=== PATIENT | male | born 1950 | race Caucasian/White ===

== ENCOUNTER → 2016-11-25 | Outpatient (CLI) | payer OTHER ==
[~2016-11-25] MED LIST: FINA5TAB PO; FLM4 PO; GLC500 PO; HYDC25 PO; LISI10TA PO; ROSU40TA PO; TADA10TA PO; ULT50X PO
--- NOTE | 2016-11-25 09:27 | DIAGNOSTIC IMAGING REPORT ---
KUB CLINICAL HISTORY: 66 years-old Male presenting with N39.0 Urinary tract [id number]. TECHNIQUE: Single supine view of the abdomen was obtained. COMPARISON: 04/08/2015. FINDINGS: Interval removal of the right ureteral stent. Previous seen noted small left renal calculus is obscured due to bowel gas and stool. Allowing for this limitation, no renal or ureteral calculi evident. Moderate stool burden in the rectum. No gross pneumoperitoneum. Osseous structures normal. Lung bases clear. IMPRESSION: 1. Interval removal of the right ureteral stent. Nonvisualization of renal or ureteral calculi allowing for bowel gas and stool. Electronically signed by: Scotty Page M.D. 11/25/2016 9:26 AM Dictated Date/Time: 11/25/2016 9:24 AM
== END | disposition home or self-care (01) ==
LOC: C.RAD 08:41
PROVIDERS: ATTEND Nurse Practitioner Adult Health
DX: N39.0 Urinary tract infection, site not specified (principal); N20.0 Calculus of kidney

== ENCOUNTER → 2017-06-07 | Outpatient (CLI) | payer OTHER ==
--- NOTE | 2017-06-08 06:25 | SPLIT NIGHT TECHNICIAN REPORT ---
[facility] Split Night Polysomnogram - Animal Care Provider Report Study date: 06/07/2017 Referring Physician: Dr. Tiesha Price M.D. Name: SYED BARKER Animal Care Provider: JULIAN Nicole. Date of : 1950 Height: 67 years, Height 6' 0" Sex: Male Weight: 193 lbs Age: 67 BMI: Medications: 26.17 METFORMIN 1000 MG, ROSAVASTATIN 40 MG, HYDROCHLOROTHIAZIDE 25 MG, LISINOPRIL 10 MG, FINASTERIDE 5 MG, IRON 65 MG, MULTI VIT Patient History 67 yr-old male here for a baseline/modified split study (CPAP to be introduced if AHI exceeds 5). He has had previous sleep testing was diagnosed with JORJE but could not tolerate CPAP. He is back to assess his JORJE. His [place] scale is 15. The test was started on room air. ETCO2 testing is included in this study. Room 1 Parameters Monitored NPSG: E1-M2, E2-M1, Fp1-M2, Fp2-M1, F3-M2, F4-M2, F4-M1, C3-M2, C4-M2, C4-M1, O1-M2, O2-M2, O2-M1, T3-M2, T4-M1, P3-M2, P4-M1, CHIN1, CHIN2, HR, EKG, Legs, PFLOW, SNOR, FLOW, CFLOW, Tidal Volume, THOR, ABDO, SpO2, PLTH, CPRESS, ETCO2 Wave, ETCO2, pH SLEEP SUMMARY DATA DIAGNOSTIC TREATMENT Lights Out: 10:34:06 PM 1:36:36 AM Lights On: 1:16:36 AM 5:22:36 AM Total Recording Time (TRT): 162.5 min. 226.0 min. Total Sleep Time (TST): 127.5 min. 149.0 min. NREM Time: 117.0 min. 108.5 min. REM Time: 10.5 min. 40.5 min. Sleep Period Time (SPT): 156.5 min. 196.5 min. Sleep Efficiency (SE): 78 % 66 % Sleep Latency: 6.0 min. 19.5 min. Arousal Index: 17.4 18.9 PAP Treatment Levels: 4, 5, 6 * Optimal Pressure(s) SLEEP STAGING DATA DIAGNOSTIC TREATMENT Duration (min) TST % Duration (min) TST % Stage Wake: 35.0 min. -- 77.0 min. -- WASO: 29.0 min. -- 47.5 min. -- NREM: 117.0 min. 92 % 108.5 min. 73 % Stage N1: 20.0 min. 16 % 14.0 min. 9 % Stage N2: 97.0 min. 76 % 89.0 min. 60 % Stage N3: 0.0 min. 0 % 5.5 min. 4 % REM: 10.5 min. 8 % 40.5 min. 27 % POSITIONAL DATA Event Count Index Event Count Index Supine: 36 50 6 23.4 Supine NREM: 34 51.2 6 23.4 Supine REM: 2 24 N/A N/A Non-Supine: 10 7.0 6 2.7 Non-Supine NREM: 10 7.7 4 2.6 Non-Supine REM: 0 0.0 2 3.0 AROUSAL SUMMARY DATA: Event Count Index Event Count Index Apnea Arousals: 10 7.1 6 3.6 Hypopnea Arousals: 4 1.9 1 0.4 Snore Arousals: 7 3.3 7 2.8 PLM Arousals: 10 4.7 14 5.6 Non-Specific Arousals: 2 0.9 11 4.4 Total Arousals: 37 17.4 47 18.9 MYOCLONUS (PLM) Event Count Index Event Count Index PLM: 66 31.1 67 27.0 PLM AROUSAL: 10 4.7 14 5.6 PLM W/O AROUSAL 66 31.1 53 21.3 PLM W/RESP EVENT 3 0.0 9 0.0 MYOCLONUS (PLM) Event Count Index Event Count Index LM: 2 29.6 45 18.1 LM AROUSAL: 2 0.9 6 2.4 LM W/O AROUSAL LM W/RESP EVENT LM NON SPECIFIC 100 47.1 82 33.0 HEART RATE DATA DIAGNOSTIC TREATMENT Sleep (bpm): 61 58 REM (bpm): 97 96 NREM (bpm): 96 96 Tachycardia Count: 0 0 Tachycardia Duration: 0.00 0 Bradycardia Count: 0 0 Bradycardia Duration: 0.00 0 DIAGNOSTIC PORTION TREATMENT PORTION RESPIRATORY DATA Event Count Index Event Count Index AHI: -- 20.7 -- 4.8 RDI: -- 21.6 -- 5 Obstructive Apnea: 7 3.3 0 0.0 Central Apnea: 5 2.4 7 2.8 Mixed Apnea: 3 1.4 2 0.8 Hypopnea: 29 13.6 3 1.2 RERA: 2 0.9 0 0.0 Total Apneas: 15 7.1 9 3.6 RESPIRATORY DATA REM NREM SLEEP REM NREM SLEEP Supine Position: Obstructive Apneas: 0 7 7 N/A 0 0 Central Apneas: 0 1 1 N/A 3 3 Mixed Apneas: 0 3 3 N/A 2 2 Hypopneas: 1 22 23 N/A 1 1 RERA 1 1 2 N/A 0 0 Total Supine Events: 2 34 36 N/A 6 6 Supine AHI: 24 51.2 50 N/A 23.4 23.4 Supine RDI: 48.0 52.7 52.5 N/A 23.4 23.4 REM NREM SLEEP REM NREM SLEEP Non-Supine Position: Obstructive Apneas: 0 0 0 0 0 0 Central Apneas: 0 4 4 1 3 4 Mixed Apneas: 0 0 0 0 0 0 Hypopneas: 0 6 6 1 1 2 RERA 0 0 0 0 0 0 Total Supine Events: 0 10 10 2 4 6 Supine AHI: 0.0 7.7 7.0 3.0 2.6 2.7 Supine RDI: 0.0 7.7 7.0 3.0 2.6 2.7 OXYGEN DESTAURATION DATA: Event Count Index Event Count Index REM Desaturations: 2 11.4 0 0.0 NREM Desaturations: 42 21.5 13 7.2 SNORE DATA DIAGNOSTIC TREATMENT Snore Time: 21.3 1:56:06 AM Snore TST%: 9 5 Snore Arousal Count: 7 7 Snore Arousal Index: 3.3 2.8 Desaturation Event Summary: Minimum %SpO2 Event Count Mean/Min/Max Duration(sec.) Desaturation Index % Time In Bed > 90 80 29.6 / 6.5 / 57.3 13.2 98.2 86 - 90 1 10.0 / 10.0 / 10.0 10.5 1.6 81 - 85 0 N/A 0.0 0.2 76 - 80 0 N/A 0.0 0.0 71 - 75 0 N/A 0.0 0.0 66 - 70 0 N/A 0.0 0.0 61 - 65 0 N/A 0.0 0.0 56 - 60 0 N/A 0.0 0.0 51 - 55 0 N/A 0.0 0.0 < 50 0 N/A 0.0 0.0 OXYGEN SATURATION DATA DIAGNOSTIC TREATMENT SpO2 Mean Sleep: 96 % 96 % SpO2 Mean REM: 97 % 96 % SpO2 Mean NREM: 96 % 96 % SpO2 Minimum Sleep: 86 % 92 % SpO2 Minimum REM: 89 % 93 % SpO2 Minimum NREM: 86 % 92 % Time Below 90% (TST): 1.7 0.0 Time Below 88% (TST): 0.3 0.0 Total REM NREM Awake <50% 0.0 min. 0.0 min. 0.0 min. 0.0 min. 51 - 60% 0.0 min. 0.0 min. 0.0 min. 0.0 min. 61 - 70% 0.0 min. 0.0 min. 0.0 min. 0.0 min. 71 - 80% 0.0 min. 0.0 min. 0.0 min. 0.0 min. 81 - 90% 6.5 min. 0.6 min. 3.7 min. 2.2 min. 91 - 100% 363.1 min. 49.6 min. 221.2 min. 92.3 min. Average 96 96 96 96 Minimum SpO2 84 89 86 84 Desaturation Event Index 12.5 2.4 14.6 14.5 # Desat. Events below 89% 8 N/A 7 1 Time(%) with Saturation below 89% 0.5 0.0 0.2 0.3 Time(min.) with Saturation below 89% 1.7 0.0 0.8 1.0 Recording Animal Care Provider Comments: Mr. Barker slept in the left and supine positions. No cardiac arrhythmias were noted. PLMs were noted. No bruxism noted. Snoring was noted and scored as a 2-3 on a scale of 1 through 5. (0=no snoring, 5=snoring loud enough to be heard through a closed door or down the trinh way) At 1:35 am, he met specific Split-Night criteria during the diagnostic portion of this study. CPAP was initiated at +4 CMH2O and up-titrated to a level of +6 CMH2O, Cflex 2 which nearly eliminated all respiratory events and snoring. He did have some central apneas while supine and stage 1 sleep raising his AHI, but hypopneas were at a minimum with treatment. An Eson 2 nasal mask size large from [employer] was used during titration. He awoke to use the restroom one time during the night. Mr. Barker stated that he slept the same as usual. The final report will be interpreted and signed by a sleep physician. The completed physician report will then be placed in the patient medical record. Therapy Event: Therapy (cm H20) 0 4 5 6 Total Time at Pressure (min.) 162.5 178.1 28.1 19.7 TST at Pressure (min.) 127.5 123.1 24.4 1.5 # Periods 1 1 1 1 Sleep Onset (min.) 6.0 19.5 0.0 0.2 REM Onset (min.) 79.5 43.5 6.4 N/A Sleep Efficiency % 78 69 86 7 Wakefulness (%) 21.5 30.9 13.4 92.4 Wakefulness (min.) 35.0 55.0 3.8 18.2 NREM 1 (%) 12.3 4.8 13.7 7.6 NREM 1 (min.) 20.0 8.6 3.9 1.5 NREM 2 (%) 59.7 40.7 58.7 0.0 NREM 2 (min.) 97.0 72.5 16.5 0.0 NREM 3 (%) 0.0 3.1 0.0 0.0 NREM 3 (min.) 0.0 5.5 0.0 0.0 REM (%) 6.5 20.5 14.2 0.0 REM (min.) 10.5 36.5 4.0 0.0 # Arousals 37 33 11 3 Arousal Index 17.4 16.1 27.1 120.0 # Snore 704 58 48 3 Snore Index 331.3 28.3 118.2 120.0 AHI 20.7 2.9 12.3 40.0 AHI Supine 49.5 0.0 21.4 60.0 AHI Non-Supine 7.0 2.9 0.0 0.0 NREM AHI 22.1 2.8 14.7 40.0 REM AHI 5.7 3.3 0.0 N/A RDI 21.6 2.9 12.3 40.0 # Obstructive 7 0 0 0 # Central Ap 5 4 2 1 # Mixed 3 0 2 0 # Hypopneas 29 2 1 0 RERAS 2 0 0 0 Total Respiratory Events 46 6 5 1 Time Below SpO2 89.00% (min.) 0.8 0.0 0.0 0.0 Mean NREM SpO2 (%) 96 96 96 97 Mean REM SpO2 (%) 97 96 97 N/A Mean Sleep SpO2 (%) 96 96 96 97 Min NREM SpO2 (%) 86 92 93 94 Min REM SpO2 (%) 89 93 96 N/A Position Supine (min.) 41.2 0.4 14.0 1.0 Position Non-supine (min.) 86.3 122.8 10.4 0.5 LM Index Sleep 60.7 41.9 51.7 200.0 LM Index NREM 58.5 33.9 44.2 200.0 LM Index REM 85.7 60.8 90.0 N/A Mean Heart Rate (bpm) 61 58 58 59 Min Heart Rate (bpm) 53 53 54 56 CPAP REPORT Therapy Detail Time / Page # Comment CPAP 4 cm H2O Nasal Mask Flex Pressure Relief Humidifier on 1:35:14 AM / pg. 648 HE HAS BEEN ASLEEP FOR OVER 2 HOURS AND HIS AHI IS ABOVE 5 (PER THE DOCTOR'S ORDER). CPAP 5 cm H2O Nasal Mask Flex Pressure Relief Humidifier on 4:34:44 AM / pg. 1007 INCREASED FOR SOME HYPOPNEAS CPAP 6 cm H2O Nasal Mask Flex Pressure Relief Humidifier on 5:02:52 AM / pg. 1063 INCREASED FOR MIXED APNEAS
--- NOTE | 2017-06-09 11:27 | POLYSOMNOGRAPH REPORT ---
CLINICAL DATA: A 67-year-old male with BMI of 26.[address] Price for a modified split night study. He previously was diagnosed with sleep apnea but could not tolerate CPAP. His [place] sleepiness score was 15/24. SLEEP ARCHITECTURE: For the diagnostic portion of the study, sleep period time was 156.5 minutes. Total sleep time was 127.5 minutes divided between 117 minutes of non-REM sleep and 10.5 minutes of REM sleep. Sleep latency was 6 minutes. Sleep efficiency was 78%. Sleep consisted of stage N1 16%, stage N2 76%, and REM 8%. For the treatment portion of the study, sleep period time was 196.5 minutes. Total sleep time was 149 minutes divided between 108.5 minutes of non-REM sleep and 40.5 minutes of REM sleep. Sleep latency was 19.5 minutes. Sleep efficiency was 66%. Sleep consisted of stage N1 9%, stage N2 60%, stage N3 4%, and REM 27%. AROUSAL DATA: Prior to treatment, 37 arousals were recorded for an index of 17.4 per hour. During treatment, 47 arousals were recorded for an index of 18.9 per hour. PLM DATA: Prior to treatment, 100 limb movements during sleep were noted for an index of 47.1 per hour. During treatment, 82 limb movements during sleep were noted for an index of 33 per hour. EKG: Heart ranged from 58-97 beats per minute. No arrhythmias were noted. RESPIRATORY DATA: Moderate sleep apnea was documented prior to treatment with a diagnostic AHI of 20.7 and a diagnostic RDI of 21.6. There were 7 obstructive, 5 central, and 3 mixed apneic episodes. There were 29 hypopneic episodes. There were 2 RERAs. The average AHI with treatment was 4.8. There were 7 central apneic episodes, 2 mixed apneic episodes, and 3 hypopneic episodes. OXIMETRY DATA: Transient hypoxemia was seen prior to treatment. Oxygen meryl was 86% prior to treatment during non-REM sleep. Mean saturation with treatment was 96%. GYMNASTICS COACH'S COMMENTS AND TREATMENT SUMMARY: The patient slept in the left and supine positions. Snoring was mild to moderate, rated 2-3 on a scale of 1-5. At 1:35 a.m., the patient met split night criteria. An Eson 2 nasal mask size large from [employer] was used. The patient was started on CPAP and was titrated up to 6 cm of water pressure, C-Flex setting #2. He did have some central apneic episodes with treatment. At 4 cm of water pressure, the patient slept for 123 minutes with an AHI of 2.9. At 5 cm water pressure, he slept for 24 minutes with an AHI of 12.3. At 6 cm water pressure, he slept for 1.5 minutes with an AHI of 40. The CPAP was increased incrementally because of hypopneic episodes and mixed apneic episodes. IMPRESSION: Moderate sleep apnea/hypopnea with incomplete CPAP titration study. The patient had some treatment onset central apneic episodes late in the evening, which did not respond to increases in CPAP. RECOMMENDATIONS: The patient could be considered for a repeat CPAP titration study or possibly use of auto CPAP. Clinical correlation is needed. LEXIED
== END | disposition home or self-care (01) ==
LOC: C.NEUR 20:00
PROVIDERS: ATTEND Internal Medicine
DX: G47.33 Obstructive sleep apnea (adult) (pediatric) (principal)